=== PATIENT | male | born 1955 | race Two or more races ===

== ENCOUNTER 2018-09-11 15:07 | Emergency (ER) | payer OTHER ==
[~2018-09-11] VITALS: Ht 177.8 cm; Wt 93.9 kg
[2018-09-11 15:28] VITALS: BP 156/88
--- NOTE | 2018-09-11 15:31 | NUR ---
ED Nurse Note:pt. felt today, c/o left knee and arm pain, pt. has abrasion on left knee
[2018-09-11] MEDS ORDERED: Norco 5mg/325mg tab ORAL ONE (15:45)
--- NOTE | 2018-09-11 16:07 | Emergency Room Report ---
History of Present Illness General Chief Complaint: Multiple Trauma/Fall Source: Patient Present Illness HPI 63 -year-old male presents to the emergency department complaining of 9 out of 10 in severity pain to the left knee as well as the left hand and left elbow status post mechanical trip and fall at noon today. Patient denies hitting his head however he states he did chip his tooth. Patient denies dizziness, nausea or vomiting. Denies taking any blood thinning medications. He reports open wound on the left knee. He states he is not sure when his last tetanus vaccination was. Denies midline neck or back pain, saddle anesthesia or paresthesias. Patient reports he is somewhat ambulatory he was able to walk home however his pain has been progressive. Allergies: Coded Allergies: PENICILLINS (Verified Allergy, Unknown, 09/11/18) Patient History Past Medical History: see triage record Past Surgical History: none Pertinent Family History: none Reviewed Nursing Documentation: PMH: Agreed; PSxH: Agreed Nursing Documentation-PMH Past Medical History: No Stated History Review of Systems All Other Systems: negative except mentioned in HPI Physical Exam Vital Signs Date Time Temp Pulse Resp B/P (MAP) Pulse Ox O2 Delivery O2 Flow Rate FiO2 09/11/18 15:24 97.5 68 19 156/88 97 Room Air Sp02 EP Interpretation: reviewed, normal General Appearance: alert, GCS 15, non-toxic, moderate distress Head: normocephalic, atraumatic, other - chipped front, top right tooth. Eyes: bilateral eye normal inspection, bilateral eye PERRL ENT: hearing grossly normal, normal voice Neck: full range of motion Respiratory: lungs clear, normal breath sounds, speaking full sentences Cardiovascular #1: regular rate, rhythm, normal capillary refill Cardiovascular #2: 2+ dorsalis pedis (R) - post. tib. , 2+ dorsalis pedis (L) - post. tib. Gastrointestinal: normal bowel sounds, non tender, soft Rectal: deferred Genitourinary: normal inspection Musculoskeletal: back normal, gait/station normal - compensatory gait favoring the left leg, normal range of motion - with pain, tender - Tenderness to palpation of the left knee, negative anterior and posterior drawer signs no increased laxity, abrasion noted anteriorly. Abrasion to the lateral aspect of the left hand no swelling or obvious deformity, tenderness to palpation the left elbow, no swelling, no bruising or obvious deformity. he is NVI Neurologic: alert, oriented x3, responsive, motor strength/tone normal, sensory intact, speech normal, grossly normal Psychiatric: judgement/insight normal Skin: normal color, no rash, warm/dry, well hydrated Lymphatic: no adenopathy Medical Decision Making JOSSUE Holley is my supervising Physician whom patient management has been discussed with. Diagnostic Impression: Primary Impression: Contusion of left knee Qualified Codes: S80.02XA - Contusion of left knee, initial encounter Additional Impressions: Contusion of left hand, initial encounter Contusion, elbow Qualified Codes: S50.02XA - Contusion of left elbow, initial encounter Abrasion ER Course 63 -year-old male presents to the emergency department complaining of 9 out of 10 in severity pain to the left knee as well as the left hand and left elbow status post mechanical trip and fall at noon today. Patient denies hitting his head however he states he did chip his tooth. Patient denies dizziness, nausea or vomiting. Denies taking any blood thinning medications. He reports open wound on the left knee. He states he is not sure when his last tetanus vaccination was. Denies midline neck or back pain, saddle anesthesia or paresthesias. Patient reports he is somewhat ambulatory he was able to walk home however his pain has been progressive. Ddx considered but are not limited to Fracture, dislocation, contusion, Sprain/ Strain/Spasm abrasion just to name a few Vital signs: are WNL, pt. is afebrile H&PE are most consistent with musculoskeletal injury will perform imaging to r/ o fractures/dislocations. ORDERS: - X-ray's LEFT KNEE< ELBOW and HAND - negative for fx, Dislocation, or significant soft tissue injury, per preliminary read in ED, and signed by JOSSUE Rolle, my supervising physician has reviewed, and agrees with my interpretation. ED INTERVENTIONS: - [place] PO -Tdap IM - Bacitracin and sterile dressing applied to left knee abrasion by RN. Beto wrap applied to the left knee by audiovisual tech. Pt. remains neurovascularly intact. - Left arm Sling applied by audiovisual tech. Pt. remains neurovascularly intact. DISCHARGE: At this time pt. is stable for d/c to home. Will provide printed patient care instructions, and any necessary prescriptions. Care plan and follow up instructions have been discussed with the patient prior to discharge. Other X-Ray Diagnostic Results Other X-Ray Diagnostic Results #1: X-Ray ordered: Left knee # of Views/Limited Vs Complete: 3 View Indication: Pain EP Interpretation: Yes PA Xray: Interpretation reviewed, by supervising MD, and agrees with findings. Interpretation: no dislocation, no soft tissue swelling, no fractures Impression: No acute disease Electronically Signed by: Ángela Rolle PA-C Other X-Ray Diagnostic Results #2: X-Ray ordered: Left hand # of Views/Limited Vs Complete: 3 View Indication: Pain EP Interpretation: Yes PA Xray: Interpretation reviewed, by supervising MD, and agrees with findings. Interpretation: no dislocation, no fractures Impression: No acute disease Electronically Signed by: Ángela Rolle PA-C Other X-Ray Diagnostic Results #3: X-Ray ordered: Left Elbow # of Views/Limited Vs Complete: 3 View Indication: Pain EP Interpretation: Yes PA Xray: Interpretation reviewed, by supervising MD, and agrees with findings. Interpretation: no dislocation, no soft tissue swelling, no fractures Impression: No acute disease Electronically Signed by: Ángela Rolle PA-C Last Vital Signs Date Time Temp Pulse Resp B/P (MAP) Pulse Ox O2 Delivery O2 Flow Rate FiO2 09/11/18 15:28 97.5 68 19 156/88 97 Room Air Status: improved Disposition: HOME, SELF-CARE Condition: Stable Scripts Bacitracin/Polymyxin B Sulfate (BACITRACIN-POLYMYXIN OINTMENT) 28.35 Gm Oint...g. 1 APPLIC TP BID, #28.3 GM Prov: Ángela Rolle 09/11/18 Acetaminophen With Codeine (T#3) (TYLENOL #3 TAB*) Y Tab 1 TAB ORAL Q6HR PRN for For Pain, #10 TAB Prov: Ángela Rolle 09/11/18 Patient Instructions: Abrasion, [id number], Contusion, [id number], Knee Pain, [id number] Additional Instructions: Take medications as directed. Follow up with a Primary Care Provider in 3-5 days, even if your symptoms have resolved. --Please review list of primary care clinics, if you do not already have a primary care provider Return sooner to ED if new symptoms occur, or current symptoms become worse. Do not drink alcohol, drive, or operate heavy machinery while taking Tylenol # 3 as this may cause drowsiness. - Please note that this Emergency Department Report was dictated using [employer] assistant technology software, occasionally this can lead to erroneous entry secondary to interpretation by the dictation equipment. Ángela Rolle Sep 11, 2018 16:07
--- NOTE | 2018-09-11 16:12 | Diagnostic Imaging Report ---
Indication: left hand pain. Findings: 3 views of the left hand were obtained. Normal alignment is demonstrated. No acute fractures, erosions, or periosteal reaction are seen. Soft tissues are unremarkable. Impression: No acute findings.
--- NOTE | 2018-09-11 16:13 | Diagnostic Imaging Report ---
Indication: Pain Findings: 3 views of the left elbow were obtained. No acute fractures, malalignment, erosions or periostitis are identified. Soft tissues are unremarkable. Impression: No acute injury
--- NOTE | 2018-09-11 16:13 | Diagnostic Imaging Report ---
Indication: Knee Pain 3 views of the left knee were obtained. Findings: No acute fracture, malalignment, or joint effusion are identified. Joint space is relatively well-maintained. Impression: Negative for acute injury
[2018-09-11] MEDS ORDERED: Tetanus/Diptheria/Pertussis Vaccine 0.5ml Syr IM ONE (16:15)
[2018-09-11] MEDS ORDERED: ACETAMINOPHEN-1 EAC1 ORAL (16:56)
[2018-09-11] MEDS ORDERED: BACITRACIN-P28.35 GM TP (16:56)
[2018-09-11] MEDS ORDERED: Bacitracin Oint UD TOPIC ONE (17:00)
[2018-09-11] MEDS ORDERED: Ketorolac 30mg Inj IM ONE (17:15)
[2018-09-11 17:36] VITALS: BP 152/84
--- NOTE | 2018-09-11 17:39 | NUR ---
ED Nurse Note:arm sling was placed on left arm and acewrap on left knee, pt. received d/c instructions with prescriptions and left ER with his spouse
== END 2018-09-11 18:02 | disposition home or self-care (01) ==
LOC: EMR 16:49
DX: S80.02XA Contusion of left knee, initial encounter (principal); S60.222A Contusion of left hand, initial encounter; S50.02XA Contusion of left elbow, initial encounter; S60.512A Abrasion of left hand, initial encounter; S80.212A Abrasion, left knee, initial encounter; W01.0XXA Fall on same level from slipping, tripping and stumbling without subsequent striking against object, initial encounter; Y92.89 Other specified places as the place of occurrence of the external cause; Z88.0 Allergy status to penicillin
CPT/HCPCS: 73080; 73130; 73562; 90471; 90715; 96372; 99284; J1885